=== PATIENT | male | born 1945 | race Caucasian/White ===

== ENCOUNTER 2025-01-09 10:21 | Outpatient (AMB) | payer MEDICARE, SELFPAY ==
--- NOTE | 2025-01-09 11:03 | AM.OFFWIN_ITS ---
Intake Vital Signs 01/09/25 11:04 Height 5 ft 7 in Weight 157 lb BMI 24.6 BP 138/50 L Blood Pressure Location Rt brachial Position Sitting Pulse 74 Pulse Source Pulse Oximeter Temp 97.5 F Temp Source Oral Pulse Oximetry (%) 97 Oxygen Delivery Method Room Air Intake Visit Reasons: [employer] Ears swelling, pain Intake Note: presents with bilateral external swelling with pain and blockage in both ears Allergies No Known Allergies Allergy (Verified 01/09/25 11:06) Do you need a note to return to daycare/school/sports/work: No HPI HPI Comments History of Present Illness Details This is an 79-year-old male who wears hearing aids bilaterally presenting for evaluation of pain that he has had in both ears for the past 2 days. Patient states that he has no pain at this time but this morning his left ear was bothering him significantly and he was unable to insert his hearing aid into his left ear. Patient denies having any fever or chills. Review of Systems Const All systems reviewed & are unremarkable except as noted in HPI and below Denies chills, Denies fatigue and Denies fever(s) Eyes Reports no additional complaints ENT Reports otalgia (L > R) and Denies sore throat Skin/Breast Reports system reviewed and no additional complaints, except as documented Psych Reports no additional complaints Endo Denies fatigue Physical Exam Vital Signs: Last Vital Signs Pulse 74 01/09/25 11:04 Pulse Ox 97 01/09/25 11:04 Oxygen Delivery Method Room Air 01/09/25 11:04 BMI result Body Mass Index 24.6 Const General: cooperative, healthy appearing, comfortable, no acute distress, well developed, alert, awake and Physically active; No acute distress Nutritional Appearance: average body habitus Orientation/consciousness: patient oriented x3 Limitations: no limitations HEENT Other: Patient is wearing hearing aid in right ear only. 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 Patient will be discharged home with antibiotic otic drops. Code(s): H60.92 - Unspecified otitis externa, left ear Qualifiers: Otitis externa type: unspecified type Chronicity: acute Qualified Code(s): H60.502 - Unspecified acute noninfective otitis externa, left ear Plan: Four drops ascetic acid/hydrocortisone otic preparation 3 times daily for 7-10 days. Return for any worsening symptoms. Medications: New hydrocortisone-acetic acid 1-2 % 4 drps otic (ear) left TID 10 mL 0RF Coding Level of Care Code Est Pt Level 3 (34595) Diagnoses Acute otitis externa of left ear, unspecified type H60.502 Otitis externa type: unspecified type Chronicity: acute Time Spent (min) 20
[2025-01-09 11:04] VITALS: BP 138/50; PULSE 74; TEMP 36.4; O2SAT 97; BMI 24.6
== END 2025-01-09 12:26 | disposition home or self-care (01) ==
PROVIDERS: Visit Provider Physician Assistant
DX: H60.502 Unspecified acute noninfective otitis externa, left ear (principal)

== ENCOUNTER → 2025-01-09 10:21 | Outpatient (BNVA) | payer MEDICARE, SELFPAY | PROVIDERS: Visit Provider Physician Assistant | DX: H60.502 Unspecified acute noninfective otitis externa, left ear (principal) | CPT/HCPCS: 99212 ==